=== PATIENT | male | born 1980 | race Hispanic/Latino ===

== ENCOUNTER 2022-07-29 07:48 | Inpatient (IN) | payer OTHER ==
[~2022-07-29] VITALS: Ht 167.6 cm; Wt 73.8 kg
[2022-07-29 08:24] LABS: BASOPHILS % (AUTO) 0.5 % (0.0-5.0); HEMATOCRIT 53.7 % (42-54); LYMPHOCYTES % (AUTO) 2.5 % (21.0-51.0); MEAN CORPUSCULAR HGB CONC 34.5 g/dL (32.0-36.0); MEAN CORPUSCULAR VOLUME 92.9 fL (79-99); MONOCYTES % (AUTO) 1.9 % (3.0-13.0); NEUTROPHILS % (AUTO) 94.6 % (40.0-77.0); PLATELET COUNT (AUTO) 246 K/uL (130-400); RED BLOOD CELL COUNT(AUTO) 5.78 MIL/uL (4.50-6.20); RED CELL DISTRIBUTION WIDTH 13.7 % (11.0-15.5); WHITE BLOOD COUNT (AUTO) 21.5 K/uL (4.8-10.8)
[2022-07-29 08:35] LABS: CARBON DIOXIDE 23 mmol/L (21-32); CHLORIDE 99 mmol/L (101-111); CREATININE 1.2 mg/dL (0.5-1.5); GLOMERULAR FILTR. RATE CALC 70 mL/min (>60); GLUCOSE,RANDOM 148 mg/dL (70-105); SODIUM SERUM 140 mmol/L (136-145); UREA NITROGEN, BLOOD 9 mg/dL (7-18)
[2022-07-29 08:41] LABS: ACETAMINOPHEN < 1 mcg/mL (10-29); ALANINE AMINOTRANSFERASE 60 U/L (12-78); ALBUMIN 4.5 g/dL (3.5-5.0); ALCOHOL, BLOOD 155 mg/dL (0-10); ASPARTATE AMINOTRANSFERASE 34 U/L (10-37); CREATINE KINASE, TOTAL 311 U/L (21-232); SALICYLATE < 2.8 mg/dL (2.8-20.0); TOTAL PROTEIN, SERUM 9.4 g/dL (6.0-8.3)
[2022-07-29 08:45] LABS: APPEARANCE,URINE CLEAR (CLEAR); BILIRUBIN,URINE NEGATIVE (NEGATIVE); COLOR,URINE LIGHT-YELLOW (YELLOW); GLUCOSE, URINE (UA) NEGATIVE (NEGATIVE); KETONES,URINE NEGATIVE (NEGATIVE); LEUKOCYTE ESTERASE ,URINE NEGATIVE Leu/uL (NEGATIVE); NITRATE,URINE NEGATIVE (NEGATIVE); OCCULT BLOOD,URINE NEGATIVE (NEGATIVE); PH,URINE 5.5 (5.0-8.0); PROTEIN,URINE 20 mg/dL (NEGATIVE); UROBILINOGEN,URINE 0.2 mg/dL (0.2-1.0)
[2022-07-29 08:52] LABS: AMPHET/METH SCREEN,URINE NEGATIVE (NEGATIVE); BARBITURATE SCREEN, URINE NEGATIVE (NEGATIVE); BENZODIAZEPINES SCREEN,URINE NEGATIVE (NEGATIVE); CANNABINOID SCREEN,URINE NEGATIVE (NEGATIVE); COCAINE SCREEN,URINE POSITIVE (NEGATIVE); OPIATE SCREEN,URINE NEGATIVE (NEGATIVE); PHENCYCLIDINE SCREEN,URINE NEGATIVE (NEGATIVE)
[2022-07-29] MEDS ORDERED: 0.9%NACL 1000ML 1,000 ML IV ONE ×2 (09:00→09:30)
[2022-07-29] MEDS ORDERED: ONDANSETRON 4MG INJ IVP ONE (10:30)
[2022-07-29] MEDS ORDERED: ZOSYN 3.375GM +NS 50ML IV ONE (13:00)
[2022-07-29] MEDS ORDERED: THIAMINE HCL 100 MG/ML 2ML VIAL IVP SCH (13:00)
[2022-07-29] MEDS ORDERED: PHARMACY COMMUNICATION MISC PRN (13:30)
[2022-07-29] MEDS ORDERED: ONDANSETRON 4MG INJ IVP PRN (13:30)
[2022-07-29] MEDS ORDERED: ACETAMINOPHEN 500 MG TABLET PO PRN (13:30)
[2022-07-29] MEDS ORDERED: LORAZEPAM 2 MG/ML 1 ML VIAL IVP PRN (13:30)
[2022-07-29] MEDS ORDERED: CHLORDIAZEPOXIDE HCL 25 MG CAP PO PRN (13:30)
[2022-07-29 13:46] LABS: ALANINE AMINOTRANSFERASE 49 U/L (12-78); ALBUMIN 3.9 g/dL (3.5-5.0); ASPARTATE AMINOTRANSFERASE 27 U/L (10-37); CARBON DIOXIDE 22 mmol/L (21-32); CHLORIDE 102 mmol/L (101-111); CREATININE 1.2 mg/dL (0.5-1.5); GLOMERULAR FILTR. RATE CALC 70 mL/min (>60); GLUCOSE,RANDOM 123 mg/dL (70-105); POTASSIUM 3.6 mmol/L (3.5-5.1); SODIUM SERUM 143 mmol/L (136-145); UREA NITROGEN, BLOOD 15 mg/dL (7-18)
[2022-07-29 13:47] LABS: HEMOGLOBIN A1C 5.3 % (4.0-6.0)
[2022-07-29 13:47] LABS: CRP QUANTITATIVE < 2.00 mg/L (0.00-9.0)
[2022-07-29] MEDS: PANTOPRAZOLE 40 MG/VIAL IVP SCH (13:56)
[2022-07-29] MEDS: M.V.I. IV [ADULT] 10 ML, FOLIC ACID 1 MG, THIAMINE HCL 100 MG in 0.9%NACL 1000ML 1,000 ML IV SCH (13:58)
[2022-07-29 14:00] LABS: THYROID STIMULATING HORMONE 0.35 uIU/mL (0.36-3.74)
[2022-07-29 14:03] LABS: PHOSPHORUS 5.2 mg/dL (2.5-4.9)
[2022-07-29 14:06] LABS: AMMONIA < 10 umol/L (11-32)
[2022-07-29 14:12] LABS: INR 1.05 (0.85-1.15); PROTHROMBIN TIME 11.4 SEC (9.6-11.6)
[2022-07-29 14:13] LABS: PARTIAL THROMBOPLASTIN TIME 23.6 SEC (26.3-35.5)
[2022-07-29] MEDS: MAGNESIUM 2GM PREMIX 50ML 50 ML IV SCH ×2 (14:40→16:33)
[2022-07-29 17:19] LABS: ABG BASE EXCESS 3.4 mmol/L (-2.0-3.0); ABG HCO3 27.6 mmol/L (21.0-28.0); ABG OXYGEN SATURATION 96.2 % (95.0-99.0); ABG PCO2 40 mmHg (35-48)
[2022-07-29] MEDS: ZOSYN 3.375GM +NS 50ML IV SCH (19:54)
[2022-07-29 22:22] LABS: CREATININE 1.2 mg/dL (0.5-1.5); POTASSIUM 3.5 mmol/L (3.5-5.1)
[2022-07-29 22:27] LABS: ALBUMIN 3.6 g/dL (3.5-5.0); TOTAL PROTEIN, SERUM 7.4 g/dL (6.0-8.3)
[2022-07-29] MEDS: DEXTROSE 5%-LACTATED RINGERS 1,000 ML IV SCH (22:30)
[2022-07-30] MEDS: PANTOPRAZOLE 40 MG/VIAL IVP SCH ×2 (01:08→13:46)
[2022-07-30] MEDS: ZOSYN 3.375GM +NS 50ML IV SCH ×3 (03:02→19:51)
[2022-07-30 06:23] LABS: MEAN CORPUSCULAR HGB CONC 34.7 g/dL (32.0-36.0); MEAN CORPUSCULAR VOLUME 92.5 fL (79-99); RED BLOOD CELL COUNT(AUTO) 4.65 MIL/uL (4.50-6.20); RED CELL DISTRIBUTION WIDTH 13.5 % (11.0-15.5); WHITE BLOOD COUNT (AUTO) 13.8 K/uL (4.8-10.8)
[2022-07-30 06:36] LABS: ALBUMIN 3.3 g/dL (3.5-5.0); CREATININE 1.2 mg/dL (0.5-1.5); MAGNESIUM 2.8 mg/dL (1.80-2.40); POTASSIUM 3.2 mmol/L (3.5-5.1); THYROID STIMULATING HORMONE 1.25 uIU/mL (0.36-3.74); TOTAL PROTEIN, SERUM 6.9 g/dL (6.0-8.3)
[2022-07-30] MEDS: DEXTROSE 5%-LACTATED RINGERS 1,000 ML IV SCH ×2 (08:49→21:35)
[2022-07-30] MEDS: THIAMINE HCL 100 MG/ML 2ML VIAL IVP SCH (08:49)
[2022-07-30] MEDS ORDERED: LIDOCAINE HCL-MPF 1% 2ML VIAL IV PRN ×2 (09:00)
[2022-07-30] MEDS ORDERED: POTASSIUM CHLORIDE 20MEQ/100ML 100 ML IV PRN ×2 (09:00)
[2022-07-30] MEDS ORDERED: KCL 20 MEQ ERTAB PO PRN (09:00)
[2022-07-30] MEDS ORDERED: LORAZEPAM 2 MG/ML 1 ML VIAL IVP PRN (09:00)
[2022-07-30] MEDS: POTASSIUM CHLORIDE 10% ELIXIR 20 MEQ/15 ML UDCUP PO PRN ×5 (09:36→23:22)
[2022-07-30] MEDS: M.V.I. IV [ADULT] 10 ML, FOLIC ACID 1 MG, THIAMINE HCL 100 MG in 0.9%NACL 1000ML 1,000 ML IV SCH (10:04)
[2022-07-30 10:55] LABS: ALBUMIN 3.1 g/dL (3.5-5.0); POTASSIUM 3.4 mmol/L (3.5-5.1); TOTAL PROTEIN, SERUM 6.6 g/dL (6.0-8.3)
[2022-07-30 19:09] VITALS: BP 153/93
[2022-07-30 22:15] LABS: ALBUMIN 3.1 g/dL (3.5-5.0); CREATININE 0.9 mg/dL (0.5-1.5); POTASSIUM 3.2 mmol/L (3.5-5.1); TOTAL PROTEIN, SERUM 6.5 g/dL (6.0-8.3)
[2022-07-30 23:29] VITALS: BP 158/89
[2022-07-31] MEDS: POTASSIUM CHLORIDE 10% ELIXIR 20 MEQ/15 ML UDCUP PO PRN ×2 (00:19→05:38)
[2022-07-31] MEDS: PANTOPRAZOLE 40 MG/VIAL IVP SCH ×2 (00:19→14:22)
[2022-07-31] MEDS: ZOSYN 3.375GM +NS 50ML IV SCH ×3 (02:02→19:55)
[2022-07-31 03:33] VITALS: BP 137/86
[2022-07-31 05:21] LABS: BASOPHILS % (AUTO) 0.9 % (0.0-5.0); EOSINOPHILS % (AUTO) 0.9 % (0.0-8.0); HEMATOCRIT 43.4 % (42-54); MEAN CORPUSCULAR HEMOGLOBIN 32.3 pg (27.0-33.0); MEAN CORPUSCULAR HGB CONC 34.8 g/dL (32.0-36.0); MEAN CORPUSCULAR VOLUME 92.9 fL (79-99); MONOCYTES % (AUTO) 9.4 % (3.0-13.0); NEUTROPHILS % (AUTO) 63.5 % (40.0-77.0); PLATELET COUNT (AUTO) 196 K/uL (130-400); RED BLOOD CELL COUNT(AUTO) 4.67 MIL/uL (4.50-6.20); RED CELL DISTRIBUTION WIDTH 13.2 % (11.0-15.5); WHITE BLOOD COUNT (AUTO) 7.7 K/uL (4.8-10.8)
[2022-07-31 05:32] LABS: ALANINE AMINOTRANSFERASE 31 U/L (12-78); ASPARTATE AMINOTRANSFERASE 22 U/L (10-37); CARBON DIOXIDE 30 mmol/L (21-32); CHLORIDE 104 mmol/L (101-111); CREATININE 0.9 mg/dL (0.5-1.5); GLOMERULAR FILTR. RATE CALC 97 mL/min (>60); GLUCOSE,RANDOM 113 mg/dL (70-105); POTASSIUM 3.7 mmol/L (3.5-5.1); SODIUM SERUM 137 mmol/L (136-145); TOTAL PROTEIN, SERUM 6.5 g/dL (6.0-8.3); UREA NITROGEN, BLOOD 7 mg/dL (7-18)
[2022-07-31] MEDS: DEXTROSE 5%-LACTATED RINGERS 1,000 ML IV SCH ×2 (05:38→18:38)
[2022-07-31 06:04] LABS: ALCOHOL, BLOOD < 3 mg/dL (0-10)
[2022-07-31 07:00] VITALS: BP 139/89
[2022-07-31] MEDS: THIAMINE HCL 100 MG/ML 2ML VIAL IVP SCH (08:42)
[2022-07-31 12:00] VITALS: BP 131/87
[2022-07-31 16:00] VITALS: BP 132/89
[2022-07-31 20:18] VITALS: BP 136/87
[2022-08-01 00:25] VITALS: BP 140/85
[2022-08-01 03:46] VITALS: BP 140/92
[2022-08-01] MEDS: DEXTROSE 5%-LACTATED RINGERS 1,000 ML IV SCH (05:52)
[2022-08-01] MEDS: PANTOPRAZOLE 40 MG/VIAL IVP SCH ×2 (06:05→11:47)
[2022-08-01] MEDS: ZOSYN 3.375GM +NS 50ML IV SCH ×2 (06:06→11:47)
[2022-08-01 08:00] VITALS: BP 151/97
[2022-08-01] MEDS: THIAMINE HCL 100 MG/ML 2ML VIAL IVP SCH (08:57)
[2022-08-01 12:00] VITALS: BP 138/94
== END 2022-08-01 17:00 | disposition home or self-care (01) | DRG 558 ==
LOC: EDH 07:48 → EDHIP 07:49 → 4BH 07-30 17:43
PROVIDERS: ADMIT Internal Medicine; ATTEND Internal Medicine
DX: M62.82 Rhabdomyolysis (principal); E87.20 Acidosis, unspecified; F32.9 Major depressive disorder, single episode, unspecified; Z20.822 Contact with and (suspected) exposure to COVID-19; E86.0 Dehydration; E83.42 Hypomagnesemia; E78.5 Hyperlipidemia, unspecified; F14.10 Cocaine abuse, uncomplicated; F10.129 Alcohol abuse with intoxication, unspecified
CPT/HCPCS: 36415; 36600; 70450; 71045; 74176; 80053; 80061; 80305; 81003; 82140; 82550; 82803; 82948; 83036; 83605; 83735; 83930; 84100; 84145; 84439; 84443; 84481; 84484; 85025; 85027; 85610; 85651; 85730; 86140; 87040; 87635; 87804; 93005; 99291; C9113; G0378; G0481; J2405; J2543; J3411; J3475; J3490; J7030